=== PATIENT | male | born 1990 | race Caucasian/White ===

== ENCOUNTER 2016-10-25 04:03 | Emergency (ER) | payer SELFPAY ==
--- NOTE | 2016-10-25 08:56 | ER Document Report ---
HPI - HPI Patient complains to provider of: toothache Onset: Yesterday Onset/Duration: Gradual Quality of pain: Throbbing Pain Level: 5 Context: 26 yo male with left lower molar decay has increased pain since yesterday. Has appt with dentist in 2 weeks. no fever or facial swelling. Associated Symptoms: None Exacerbated by: Denies Relieved by: Denies - ROS ROS below otherwise negative: Yes Systems Reviewed and Negative: Yes All other systems reviewed and negative - DERM Skin Color: Normal Past Medical History - General Information source: Patient - Social History Smoking Status: Current Every Day Smoker Chew tobacco use (# tins/day): No Frequency of alcohol use: None Drug Abuse: None Lives with: Family Family History: Reviewed & Not Pertinent Patient has suicidal ideation: No Patient has homicidal ideation: No - Medical History Medical History: Negative - Past Medical History Cardiac Medical History: Pulmonary Medical History: Renal/ Medical History: Denies: Hx Peritoneal Dialysis GI Medical History: Musculoskeltal Medical History: Infectious Medical History: Surgical Hx: Negative Past Surgical History: Reports: Hx Orthopedic Surgery - RIGHT WRIST. Denies: Hx Pacemaker - Immunizations Hx Diphtheria, Pertussis, Tetanus Vaccination: Yes - 2010 [facility] Provider Document - CONSTITUTIONAL Agree With Documented VS: Yes Exam Limitations: No Limitations General Appearance: No Apparent Distress - INFECTION CONTROL TRAVEL OUTSIDE OF THE [place] IN LAST 30 DAYS: No - HEENT HEENT: Normocephalic Notes: decayed to pulp left lower 1st molar, no abscess - NECK Neck: Supple. negative: Lymphadenopathy-Left, Lymphadenopathy-Right - RESPIRATORY O2 Sat by Pulse Oximetry: 100 - NEURO Level of Consciousness: Awake, Alert, Appropriate - DERM Integumentary: Warm, Dry Course - Vital Signs Vital signs: Temp Pulse Resp BP Pulse Ox 97.6 F 73 17 136/78 H 100 10/25/16 06:28 10/25/16 06:28 10/25/16 06:28 10/25/16 06:28 10/25/16 06:28 Discharge - Discharge Clinical Impression: dental pain and decay Condition: Good Disposition: HOME, SELF-CARE Instructions: Penicillin V K ([facility]), Toothache ([facility]), Dental Infection or Abscess ([facility]), Dentist, Ultram ([facility]), Penicillins ([facility]) Additional Instructions: see the dentist reTurn to the emergency room any concerns Please complete the patient satisfaction survey if you get one, and return it.. If you do not receive a survey, then you can go to the [facility] website, [email or web address] and place your comments about your very good care. Thank you very much. It was a pleasure being your medical provider today. Prescriptions: Penicillin V Potassium [Penicillin Vk 500 mg Tablet] 500 mg PO QID #40 tablet Tramadol HCl [Ultram 50 mg Tablet] 50 mg PO ASDIR PRN #20 tablet PRN Reason:
[2016-10-25 09:08] VITALS: BP 136/74
== END 2016-10-25 09:06 | disposition home or self-care (01) ==
LOC: ER 04:03
DX: K02.9 Dental caries, unspecified (principal); K08.89 Other specified disorders of teeth and supporting structures; F17.200 Nicotine dependence, unspecified, uncomplicated
CPT/HCPCS: 99282

== ENCOUNTER 2016-12-10 11:24 | Emergency (ER) | payer SELFPAY ==
[2016-12-10 11:37] VITALS: BP 130/75
[2016-12-10] MEDS ORDERED: ACETAMINOPHEN 325 MG TABLET PO ONE (11:46)
--- NOTE | 2016-12-10 12:13 | ER Document Report ---
HPI - HPI Patient complains to provider of: right ankle pain Pain Level: 5 Context: Patient is a 26-year-old male presents emergency Department complaining of right lateral ankle pain and swelling. Patient states yesterday he was walking when he stepped in a small hole and rolled his ankle. He states that he heard a pop. Sudden onset of pain and swelling. Hasn't been taking anything at home for pain has not been able to bear weight or walk. 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 Denies any previous injury or surgery on this ankle. No known drug allergies. - CARDIOVASCULAR Cardiovascular: DENIES: Chest pain - DERM Skin Color: Normal Past Medical History - Social History Smoking Status: Never Smoker Chew tobacco use (# tins/day): No Frequency of alcohol use: None Drug Abuse: None Family History: Reviewed & Not Pertinent Patient has suicidal ideation: No Patient has homicidal ideation: No - Past Medical History Cardiac Medical History: Denies: Hx Coronary Artery Disease, Hx Heart Attack, Hx Hypertension Pulmonary Medical History: Denies: Hx Asthma, Hx Bronchitis, Hx COPD, Hx Pneumonia Neurological Medical History: Denies: Hx Cerebrovascular Accident, Hx Seizures Renal/ Medical History: Denies: Hx Peritoneal Dialysis GI Medical History: Musculoskeltal Medical History: Denies Hx Arthritis Infectious Medical History: Past Surgical History: Reports: Hx Orthopedic Surgery - RIGHT WRIST. Denies: Hx Pacemaker - Immunizations Hx Diphtheria, Pertussis, Tetanus Vaccination: Yes - 2010 [facility] Provider Document - CONSTITUTIONAL Agree With Documented VS: Yes Exam Limitations: No Limitations General Appearance: WD/WN, No Apparent Distress Notes: PHYSICAL EXAM GENERAL: Alert, interacts well. EXTREMITIES: Moves all 4 extremities spontaneously. Evidence of soft tissue swelling around the lateral aspect of the right ankle. Tender to palpation. Full range of motion. Cap refill less than 2 seconds in all lower extremity digits., radial and dorsalis pedis pulses 2/4 bilaterally. No cyanosis. NEUROLOGICAL: Alert and oriented x4. Normal speech. PSYCH: Normal affect, normal mood. SKIN: Warm, dry, normal turgor. No rashes or lesions noted. - INFECTION CONTROL TRAVEL OUTSIDE OF THE [place] IN LAST 30 DAYS: No - RESPIRATORY O2 Sat by Pulse Oximetry: 99 Course - Re-evaluation Re-evalutation: 12/10/16 13:05 X-ray shows evidence of small bone fragment consistent with avulsion fracture supporting evidence of calcaneofibular ligament damage. Will put patient in Ritesh wrap for compression and support and crutches and follow-up with primary care. - Vital Signs Vital signs: Temp Pulse Resp BP Pulse Ox 98.0 F 63 14 130/75 H 99 12/10/16 11:36 12/10/16 11:36 12/10/16 11:36 12/10/16 11:36 12/10/16 11:36 - Diagnostic Test Radiology reviewed: Image reviewed, Reports reviewed Discharge - Discharge Clinical Impression: Calcaneofibular (ligament) ankle sprain Condition: Good Disposition: HOME, SELF-CARE Instructions: Sprained Ankle ([facility]), Ice Packs ([facility]), Ritesh Wrap ([facility]), Use of Crutches ([facility]) Prescriptions: Naproxen 500 mg PO BIDP PRN #15 tablet PRN Reason: Forms: Return to Work, Elevated Blood Pressure [facility]: [facility] [NO LOCAL MD] - Follow up as needed FRANCESCA GOODE MD [ACTIVE STAFF] - Follow up as needed
== END 2016-12-10 13:30 | disposition left against medical advice (07) ==
LOC: ER 11:24
DX: S93.419A Sprain of calcaneofibular ligament of unspecified ankle, initial encounter (principal); M25.571 Pain in right ankle and joints of right foot; M79.89 Other specified soft tissue disorders; X58.XXXA Exposure to other specified factors, initial encounter
CPT/HCPCS: 99283

== ENCOUNTER 2017-02-27 05:34 | Emergency (ER) | payer SELFPAY ==
[2017-02-27] MEDS ORDERED: BUPIVACAINE HCL 0.75% INJ/PF (7.5 MG/1 ML) 10 ML SDV INJ ONE (05:52)
[2017-02-27] MEDS ORDERED: PENICILLIN V POTASSIUM 500 MG TABLET PO ONE (05:52)
[2017-02-27] MEDS ORDERED: LIDOCAINE 1% INJ (10 MG/ML) 10 ML MDV INJ ONE (05:52)
--- NOTE | 2017-02-27 05:52 | ER Document Report ---
HPI - HPI Patient complains to provider of: dental pain Pain Level: 5 Context: Patient is a 26-year-old male that comes emergency department for chief complaint of dental pain, he reports pain in his left upper jaw, he states this has been worsening over the past 2 days despite taking 800 mg of ibuprofen 3 times a day. He states he has a known chipped/fractured tooth in that area. He denies any other symptoms including fever, sore throat, neck pain. - DERM Skin Color: Normal Past Medical History - General Information source: Patient - Social History Smoking Status: Current Every Day Smoker Frequency of alcohol use: Occasional Drug Abuse: None Lives with: Alone Family History: Reviewed & Not Pertinent Patient has suicidal ideation: No Patient has homicidal ideation: No - Medical History Medical History: Negative - Past Medical History Cardiac Medical History: Denies: Hx Coronary Artery Disease, Hx Heart Attack, Hx Hypertension Pulmonary Medical History: Denies: Hx Asthma, Hx Bronchitis, Hx COPD, Hx Pneumonia Neurological Medical History: Denies: Hx Cerebrovascular Accident, Hx Seizures Renal/ Medical History: Denies: Hx Peritoneal Dialysis GI Medical History: Musculoskeltal Medical History: Denies Hx Arthritis Infectious Medical History: Past Surgical History: Reports: Hx Orthopedic Surgery - RIGHT WRIST. Denies: Hx Pacemaker - Immunizations Hx Diphtheria, Pertussis, Tetanus Vaccination: Yes - 2010 [facility] Provider Document - CONSTITUTIONAL General Appearance: WD/WN, Moderate Distress - Patient holding his face, has difficulty holding still, appears to be in significant pain - INFECTION CONTROL TRAVEL OUTSIDE OF THE [place] IN LAST 30 DAYS: No - HEENT HEENT: Atraumatic, Normocephalic Mouth Diagram: 1 - Dental fracture, no swelling, no drainable abscess noted in the mouth, normal oral exam otherwise - NECK Neck: Normal Inspection. negative: Lymphadenopathy-Left, Lymphadenopathy-Right - RESPIRATORY Respiratory: Breath Sounds Normal, No Respiratory Distress O2 Sat by Pulse Oximetry: 97 - CARDIOVASCULAR Cardiovascular: Regular Rate, Regular Rhythm - GI/ABDOMEN Gastrointestinal: Abdomen Soft, Abdomen Non-Tender - BACK Back: Normal Inspection - MUSCULOSKELETAL/EXTREMETIES Musculoskeletal/Extremeties: MAEW, FROM, Non-Tender Course - Re-evaluation Re-evalutation: Patient requesting a dental block because of his pain. Excellent results. Given penicillin, pain medication, dental clinic referral. Patient states that he will follow up. Discussed return precautions, patient states understanding and agreement. - Vital Signs Vital signs: Temp Pulse Resp BP Pulse Ox 98.6 F 99 18 157/76 H 97 02/27/17 05:38 02/27/17 05:38 02/27/17 05:38 02/27/17 05:38 02/27/17 05:38 Procedures - Additional Procedures Dental block Notes: Dental block used performing alveolar nerve block on the left upper side using 1.5 mL's of 1% lidocaine and 1.5 mL's of 0.75% bupivacaine. Aspiration before injection, patient had rapid and excellent results. No complications. Discharge - Discharge Clinical Impression: Pain, dental Condition: Stable Disposition: HOME, SELF-CARE Additional Instructions: Take the antibiotic as prescribed to completion. Take pain medication if needed. Follow-up with the dentist to prevent this from continuing to happen. Return to emergency department for any concerning or worsening symptoms including facial swelling. Prescriptions: Hydrocodone/Acetaminophen [[place] 5-325 mg Tablet] 1 - 2 tab PO ASDIR #15 tablet Penicillin V Potassium [Penicillin Vk 500 mg Tablet] 500 mg PO BID #20 tablet Forms: Return to Work Referrals: [facility] [Provider Group] - Follow up as needed
[2017-02-27] MEDS ORDERED: LIDOCAINE 1% INJ-PF (10 MG/ML) 30 ML SDV ONE (05:58)
[2017-02-27] MEDS ORDERED: HYDROCODONE/ACETAMINOPHEN 5-325 MG 6 TAB/DSPK PO PRN (06:15)
[2017-02-27 06:42] VITALS: BP 136/76
== END 2017-02-27 06:41 | disposition home or self-care (01) ==
LOC: ER 05:34
PROC: 3E0T3BZ Introduction of Anesthetic Agent into Peripheral Nerves and Plexi, Percutaneous Approach (ICD-10-PCS; principal; 2017-02-27)
DX: K08.89 Other specified disorders of teeth and supporting structures (principal); R68.84 Jaw pain; F17.200 Nicotine dependence, unspecified, uncomplicated
CPT/HCPCS: 99282; 64400; J3490 ×2

== ENCOUNTER 2019-01-01 22:51 | Emergency (ER) | payer OTHER ==
[2019-01-02] MEDS ORDERED: KETOROLAC TROMETHAMINE 60 MG/2 ML SDV IM ONE (00:41)
--- NOTE | 2019-01-02 00:43 | ER Document Report ---
ED Medical Screen (RME) - General Chief Complaint: Groin Pain Stated Complaint: GROIN PAIN Time Seen by Provider: 01/02/19 00:40 Notes: 28-year-old male with chief complaint of testicular pain. Pain is worse on the left, sometimes radiates up into the abdomen. Denies injury, denies dysuria, denies discharge. He is an inmate and in custody at this time. Denies nausea or vomiting, fever or chills. TRAVEL OUTSIDE OF THE [place] IN LAST 30 DAYS: No - Related Data Allergies/Adverse Reactions: No Known Allergies Allergy (Verified 12/10/16 11:28) Past Medical History - Past Medical History Cardiac Medical History: Denies: Hx Coronary Artery Disease, Hx Heart Attack, Hx Hypertension Pulmonary Medical History: Denies: Hx Asthma, Hx Bronchitis, Hx COPD, Hx Pneumonia Neurological Medical History: Denies: Hx Cerebrovascular Accident, Hx Seizures Renal/ Medical History: Denies: Hx Peritoneal Dialysis GI Medical History: Musculoskeltal Medical History: Denies Hx Arthritis Infectious Medical History: Past Surgical History: Reports: Hx Orthopedic Surgery - RIGHT WRIST. Denies: Hx Pacemaker - Immunizations Hx Diphtheria, Pertussis, Tetanus Vaccination: Yes - 2010 Physical Exam - Vital signs Vitals: Temp Pulse Resp BP Pulse Ox 99.0 F 82 20 127/78 H 97 01/01/19 23:01 01/01/19 23:01 01/01/19 23:01 01/01/19 23:01 01/01/19 23:01 - Genitourinary Tenderness: Other - Tender over the left testicular and posterior aspect near the epididymis. No obvious swelling or erythema noted. Cremasteric reflex intact. consular officer at bedside during exam. Course - Re-evaluation Re-evalutation: I have greeted and performed a rapid initial assessment of this patient. A comprehensive ED assessment and evaluation of the patient, analysis of test results and completion of the medical decision making process will be conducted by additional ED providers. - Vital Signs Vital signs: Temp Pulse Resp BP Pulse Ox 99.0 F 82 20 127/78 H 97 01/01/19 23:01 01/01/19 23:01 01/01/19 23:01 01/01/19 23:01 01/01/19 23:01
[2019-01-02 01:02] LABS: APPEARANCE,URINE SLIGHTLY-CLOUDY; BILIRUBIN,URINE NEGATIVE (NEGATIVE); COLOR,URINE YELLOW; GLUCOSE, URINE NEGATIVE (NEGATIVE); KETONES,URINE TRACE mg/dL (NEGATIVE); LEUKOCYTE ESTERASE,URINE TRACE (NEGATIVE); NITRITE,URINE NEGATIVE (NEGATIVE); PROTEIN,URINE NEGATIVE (NEGATIVE); URINE SPECIFIC GRAVITY 1.025; UROBILINOGEN,URINE NEGATIVE mg/dL (<2.0)
--- NOTE | 2019-01-02 01:27 | RADIOLOGY REPORT (SQ) ---
EXAM DESCRIPTION: [facility]: US SCROTUM CLINICAL HISTORY: 28 years Male; left scrotal/testicular pain TECHNIQUE: Batres-scale, color, and spectral Doppler images were obtained of the testes and scrotum. COMPARISON: None FINDINGS: Right testicle: 5 x 2 x 3.5 cm. Testicular echogenicity is normal with no focal lesion. Testicular vascular flow is normal. Right epididymis: 0.8 x 1 x 1.2 cm. No hydrocele Left testicle: 5 x 2.2 x 3.6 cm. Testicular echogenicity is normal with no focal lesion. Testicular vascular flow is normal. Left epididymis: 1.4 x 0.9 x 1.2 cm. No hydrocele IMPRESSION: 1. Normal testicular ultrasound.
[2019-01-02 02:27] LABS: CHLAM PCR NOT DETECTED (NOT DETECT); GON PCR NOT DETECTED (NOT DETECT)
[2019-01-02 04:35] VITALS: BP 117/76
--- NOTE | 2019-01-02 04:49 | ER Document Report ---
ED GI/ - General Chief Complaint: Groin Pain Stated Complaint: GROIN PAIN Time Seen by Provider: 01/02/19 00:40 Notes: Patient is a 28-year-old male with chief complaint of testicular pain. He states symptoms have been noticeable for almost a month but much more noticeable over the past several days. Pain is worse on the left, sometimes radiates up into the abdomen. Denies injury, denies dysuria, denies discharge. He is an inmate and in custody at this time. Denies nausea or vomiting, fever or chills. TRAVEL OUTSIDE OF THE [place] IN LAST 30 DAYS: No - Related Data Allergies/Adverse Reactions: No Known Allergies Allergy (Verified 12/10/16 11:28) Past Medical History - General Information source: Patient - Social History Smoking Status: Unknown if Ever Smoked Drug Abuse: None Lives with: Other - Incarcerated Family History: Reviewed & Not Pertinent - Past Medical History Cardiac Medical History: Denies: Hx Coronary Artery Disease, Hx Heart Attack, Hx Hypertension Pulmonary Medical History: Denies: Hx Asthma, Hx Bronchitis, Hx COPD, Hx Pneumonia Neurological Medical History: Denies: Hx Cerebrovascular Accident, Hx Seizures Renal/ Medical History: Denies: Hx Peritoneal Dialysis GI Medical History: Musculoskeletal Medical History: Denies Hx Arthritis Infectious Medical History: Past Surgical History: Reports: Hx Orthopedic Surgery - RIGHT WRIST. Denies: Hx Pacemaker - Immunizations Hx Diphtheria, Pertussis, Tetanus Vaccination: Yes - 2010 Review of Systems - Review of Systems Constitutional: No symptoms reported EENT: No symptoms reported Cardiovascular: No symptoms reported Respiratory: No symptoms reported Gastrointestinal: No symptoms reported Genitourinary: See HPI Male Genitourinary: See HPI Musculoskeletal: No symptoms reported Skin: No symptoms reported Hematologic/Lymphatic: No symptoms reported Neurological/Psychological: No symptoms reported Physical Exam - Vital signs Vitals: Temp Pulse Resp BP Pulse Ox 99.0 F 82 20 127/78 H 97 01/01/19 23:01 01/01/19 23:01 01/01/19 23:01 01/01/19 23:01 01/01/19 23:01 - Notes Notes: GENERAL: Alert, interacts well. No acute distress. HEAD: Normocephalic, atraumatic. EYES: Pupils equal, round, and reactive to light. Extraocular movements intact. ENT: Oral mucosa moist, tongue midline. Oropharynx unremarkable. Airway patent. Nares patent, no nasal septal hematoma, TM's intact. NECK: Full range of motion. Supple. Trachea midline. LUNGS: Clear to auscultation bilaterally, no wheezes, rales, or rhonchi. No respiratory distress. HEART: Regular rate and rhythm. No murmur ABDOMEN: Soft, non-tender. Non-distended. Bowel sounds present in all 4 quadrants. GENITOURINARY: Tender over the left testicular and posterior aspect near the epididymis. No obvious swelling or erythema noted. Cremasteric reflexes intact. Unremarkable genital and groin exam otherwise. administrative hearing officer at bedside during exam. EXTREMITIES: Moves all 4 extremities spontaneously. No edema, normal radial and dorsalis pedis pulses bilaterally. No cyanosis. BACK: no cervical, thoracic, lumbar midline tenderness. No saddle anesthesia, normal distal neurovascular exam. Moves all extremities in full range of motion. NEUROLOGICAL: Alert and oriented x3. Normal speech. Cranial nerves II through XII grossly intact. PSYCH: Normal affect, normal mood. SKIN: Warm, dry, normal turgor. No rashes or lesions noted. Course - Re-evaluation Re-evalutation: Patient is tender over the left epididymis without swelling, erythema, tenderness otherwise, or other abnormality on exam. Soft benign abdomen. Unremarkable vital signs. Well-appearing patient without any signs of distress. Gonorrhea and Chlamydia are negative. Urine does show some white blood cells, culture was placed. Ultrasound performed and shows no acute findings. Physical examination however is consistent with epididymitis. Very low suspicion of acute abdomen, ureterolithiasis, or other acute abnormality. Discussed options with patient. Decision was made to cover him with Keflex because of abnormal urine, culture urine, placed on anti-inflammatories, and perform routine follow- up with primary care with return precautions which were discussed. Patient states understanding and agreement with plan. - Vital Signs Vital signs: Temp Pulse Resp BP Pulse Ox 98.3 F 68 16 117/76 99 01/02/19 04:23 01/02/19 04:23 01/02/19 04:23 01/02/19 04:23 01/02/19 04:23 - Laboratory Laboratory results interpreted by me: 01/02/19 00:45 Urine Ketones TRACE H Ur Leukocyte Esterase TRACE H Discharge - Discharge Clinical Impression: Testicular pain Condition: Stable Disposition: HOME, SELF-CARE Additional Instructions: Your evaluation is consistent with epididymitis, no concerning findings are noted on your ultrasound. Take the anti-inflammatory as prescribed, wear supportive underwear, symptoms should gradually resolve with time. There are white blood cells in your urine, gonorrhea and Chlamydia testing are negative, we have a culture pending, I recommend the Keflex antibiotic as prescribed to completion. Follow-up routinely with primary care. Return if you worsen including swelling or redness, vomiting, fever, or any other concerning or worsening symptoms. Prescriptions: Cephalexin Monohydrate [Keflex 500 mg Capsule] 500 mg PO BID 5 Days #10 capsule Naproxen 500 mg PO BID 10 Days #20 tablet
== END 2019-01-02 04:59 | disposition home or self-care (01) ==
LOC: ER 22:51
DX: N50.812 Left testicular pain (principal)
CPT/HCPCS: 99284; 96372; 81001; 87491; 87591; 76870; 93976; J1885

== ENCOUNTER 2020-01-27 21:56 | Emergency (ER) | payer OTHER ==
[2020-01-28] MEDS ORDERED: HYDROCODONE/ACETAMINOPHEN 5-325 MG TABLET PO ONE
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
[2020-01-28 04:43] VITALS: BP 128/62
[2020-01-28] MEDS ORDERED: CYCLOBENZAPRINE HCL 10 MG TABLET PO ONE (04:43)
[2020-01-28] MEDS ORDERED: HYDROCODONE/ACETAMINOPHEN 5-325 MG (6 TAB/ER DISP) PO PRN (04:45)
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
== END 2020-01-28 04:55 | disposition home or self-care (01) ==
LOC: ER 21:56
DX: M25.521 Pain in right elbow (principal); M25.531 Pain in right wrist; R07.89 Other chest pain; V28.4XXA Motorcycle driver injured in noncollision transport accident in traffic accident, initial encounter
CPT/HCPCS: 99283